=== PATIENT | male | born 1975 | race Two or more races ===

== ENCOUNTER 2021-07-30 23:19 | Emergency (ER) | payer SELFPAY ==
[~2021-07-30] VITALS: Ht 167.6 cm; Wt 89.1 kg
[~2021-07-30 23:19] MED LIST: NAPR-683 PO
[2021-07-31] MEDS ORDERED: CEPHALEXIN 250 MG CAPSULE. PO STA (00:23)
[2021-07-31 00:24] VITALS: BP 124/80
[2021-07-31] MEDS ORDERED: LIDOCAINE 1% Multi-Dose 20 ML VIAL. INJ ONE (00:30)
[2021-07-31] MEDS ORDERED: CEPH500T PO (00:44)
--- NOTE | 2021-07-31 00:44 | PHYS DOC ---
Past Medical History Past Medical History: No Pertinent History Past Surgical History: No Surgical History Smoking Status: Never Smoker Alcohol Use: None Drug Use: None General Adult EDM: Chief Complaint: LACERATION/AVULSION HPI: HPI: Patient is a 46 year old male who presented to ER for evaluation of right hand laceration after he broke a glass cup while he was cleaning it tonight. Patient is up-to-date on his tetanus status. Patient sustained a laceration at the knuckle area between the index and middle finger. Review of Systems: Review of Systems: Constitutional: Denies fever or chills. [] Eyes: Denies change in visual acuity. [] HENT: Denies nasal congestion or sore throat. [] Respiratory: Denies cough or shortness of breath. [] Cardiovascular: Denies chest pain or edema. [] GI: Denies abdominal pain, nausea, vomiting, bloody stools or diarrhea. [] : Denies dysuria. [] Musculoskeletal: Denies back pain or joint pain. [] Integument: Positive for right hand laceration Neurologic: Denies headache, focal weakness or sensory changes. [] Endocrine: Denies polyuria or polydipsia. [] Lymphatic: Denies swollen glands. [] Psychiatric: Denies depression or anxiety. [] Heart Score: C/O Chest Pain: N/A Risk Factors: Risk Factors: DM, Current or recent (<one month) smoker, HTN, HLP, family history of CAD, obesity. Risk Scores: Score 0 - 3: 2.5% MACE over next 6 weeks - Discharge Home Score 4 - 6: 20.3% MACE over next 6 weeks - Admit for Clinical Observation Score 7 - 10: 72.7% MACE over next 6 weeks - Early Invasive Strategies Current Medications: Current Medications Medications (Trade) Dose Ordered Sig/Nubia Start Time Stop Time Status Last Admin Dose Admin Cephalexin HCl (Keflex) 500 mg 1X STAT 07/31/21 00:23 07/31/21 00:25 DC 07/31/21 00:23 500 MG Lidocaine HCl (Lidocaine 1% 20ml Vial) 20 ml 1X ONCE 07/31/21 00:30 07/31/21 00:31 DC 07/31/21 00:29 20 ML Allergies: Allergies: Allergies Coded Allergies Type Severity Reaction Last Updated Verified No Known Drug Allergies 7/17/16 No Physical Exam: PE: Constitutional: Well developed, well nourished, no acute distress, non-toxic appearance. [] HENT: Normocephalic, atraumatic, bilateral external ears normal, oropharynx moist, no oral exudates, nose normal. [] Eyes: PERRLA, EOMI, conjunctiva normal, no discharge. [] Neck: Normal range of motion, no tenderness, supple, no stridor. [] Cardiovascular:Heart rate regular rhythm, no murmur [] Lungs & Thorax: Bilateral breath sounds clear to auscultation [] Abdomen: Bowel sounds normal, soft, no tenderness, no masses, no pulsatile masses. [] Skin: Warm, dry, 2 cm laceration on the dorsal surface of the right hand at the MCP joint area between the right index and middle finger, No tendon injury, no active bleeding. Patient can flex and extend all right fingers without any problem. Back: No tenderness, no CVA tenderness. [] Extremities: No tenderness, no cyanosis, no clubbing, ROM intact, no edema. [] Neurologic: Alert and oriented X 3, normal motor function, normal sensory function, no focal deficits noted. [] Psychologic: Affect normal, judgement normal, mood normal. [] Current Patient Data: Vital Signs: Vital Signs Date Time Temp Pulse Resp B/P (MAP) Pulse Ox O2 Delivery O2 Flow Rate FiO2 07/30/21 23:20 98.3 68 19 125/72 (89) 100 Room Air 98.3 EKG: EKG: [] Radiology/Procedures: Radiology/Procedures: Laceration Procedure: Location: RIGHT HAND Anesthesia: 8 ML 1% LIDOCAINE PLAIN total lenght of laceration: 2 CM Number of sutures: 4 Suture Material:3-0-[id number] Technique: SIMPLE INTERRUPTED METHOD Patient tolerated procedure well. The wound was dressed with: GAUZE Course & Med Decision Making: Course & Med Decision Making Pertinent Labs and Imaging studies reviewed. (See chart for details) [] Dragon Disclaimer: Dragon Disclaimer: This electronic medical record was generated, in whole or in part, using a voice recognition dictation system. Departure Departure Impression: Primary Impression: Laceration of right hand Disposition: 01 HOME / SELF CARE / HOMELESS Condition: IMPROVED Referrals: LEAH CARTER MD (PCP) Follow up with your doctor in 10 days for sutures removal Patient Instructions: Laceration Care, Adult Scripts Cephalexin (CEPHALEXIN) 500 Mg Tablet 1 TAB PO QID for 5 Days, #20 TAB Prov: MOLINA JACOB DO 07/31/21 MOLINA JACOB DO July 31, 2021 00:44
== END 2021-07-31 00:45 | disposition home or self-care (01) ==
LOC: ER 23:19
DX: S61.411A Laceration without foreign body of right hand, initial encounter (principal); W25.XXXA Contact with sharp glass, initial encounter; Y93.E8 Activity, other personal hygiene; Y92.89 Other specified places as the place of occurrence of the external cause; Y99.8 Other external cause status
CPT/HCPCS: 12001; 99283; J3490